=== PATIENT | male | born 1955 | race Two or more races ===

== ENCOUNTER 2017-04-01 13:17 | Emergency (ER) | payer OTHER ==
[~2017-04-01] VITALS: Ht 182.9 cm; Wt 99.8 kg
[2017-04-01] MEDS ORDERED: TDAP [DIPH/PERTUSSIS/TET] 0.5 ML VIAL IM ONE ×2 (13:30→13:31)
[2017-04-01] MEDS ORDERED: LIDOCAINE HCL/PF 1% 30 ML SDV ONE (13:31)
--- NOTE | 2017-04-01 14:00 | NUR ---
CINTHYA SMITH BS FOR WOUND CARE.
--- NOTE | 2017-04-01 14:58 | NUR ---
Patient discharged to home in stable condition. Written and verbal after care instructions given. Patient verbalizes understanding of instruction.
[2017-04-01 15:01] VITALS: BP 141/88
== END 2017-04-01 15:02 | disposition home or self-care (01) ==
LOC: ER 13:19
DX: S61.412A Laceration without foreign body of left hand, initial encounter (principal); Z23 Encounter for immunization; W27.8XXA Contact with other nonpowered hand tool, initial encounter; Y93.89 Activity, other specified; Y92.89 Other specified places as the place of occurrence of the external cause; Y99.0 Civilian activity done for income or pay
CPT/HCPCS: 12002; 73130; 90471; 90715; 99284; A4606; A6402; J3490; Z7610